=== PATIENT | male | born 1945 | race Two or more races ===

== ENCOUNTER 2017-03-07 12:11 | Emergency (ER) | payer OTHER, MEDICARE ==
[~2017-03-07] VITALS: Ht 167.6 cm; Wt 112.9 kg
[~2017-03-07 12:11] MED LIST: AMITRIPTYLINE H75 MG PO; CYMBALTA60 MG PO; NEURONTIN300 MG PO; PREDNISONE20 MG PO; TYLENOL325 MG PO
[2017-03-09] MEDS ORDERED: FERROUS SULFAT325 M1 PO (09:01)
[2017-03-09] MEDS ORDERED: KLONOPIN1 MG PO (09:02)
[2017-03-09] MEDS ORDERED: CERTAVITE SR-AN1 TAB PO (09:03)
[2017-03-09] MEDS ORDERED: FORFIVO XL450 MG PO (09:04)
[2017-03-09] MEDS ORDERED: DURAGESIC12 MCG TOP (09:04)
[2017-03-11] MEDS ORDERED: XARELTO15 MG PO (22:40)
[2017-03-11] MEDS ORDERED: PRINIVIL2.5 MG PO (22:43)
== END 2017-03-07 16:45 | disposition short-term general hospital (02) ==
LOC: ER 12:11
DX: F11.23 Opioid dependence with withdrawal (principal); G89.29 Other chronic pain; F41.9 Anxiety disorder, unspecified; F32.9 Major depressive disorder, single episode, unspecified; K21.9 Gastro-esophageal reflux disease without esophagitis; I10 Essential (primary) hypertension; E66.01 Morbid (severe) obesity due to excess calories; Z98.890 Other specified postprocedural states; Z98.1 Arthrodesis status; Z98.84 Bariatric surgery status; Z86.72 Personal history of thrombophlebitis; Z88.0 Allergy status to penicillin; Z88.4 Allergy status to anesthetic agent; Z91.041 Radiographic dye allergy status; Z79.899 Other long term (current) drug therapy; Z90.49 Acquired absence of other specified parts of digestive tract; Z87.891 Personal history of nicotine dependence
CPT/HCPCS: G0480; J2405; J2765